=== PATIENT | female | born 1950 | race Caucasian/White ===

== ENCOUNTER → 2024-05-10 10:14 | Outpatient (REF) | payer MEDICARE, SELFPAY | LOC: WDC 10:14 | PROVIDERS: ATTENDING PHYSICIAN Family Medicine; REFERRING PHYSICIAN Surgery | DX: Z78.0 Asymptomatic menopausal state (principal); Z12.31 Encounter for screening mammogram for malignant neoplasm of breast | CPT/HCPCS: 77063; 77067; 77080 ==

== ENCOUNTER → 2024-06-06 13:04 | Outpatient (REF) | payer MEDICARE, SELFPAY | LOC: RAD 13:04 | PROVIDERS: ATTENDING PHYSICIAN Obstetrics & Gynecology Gynecologic Oncology; FAMILY PHYSICIAN Family Medicine | DX: N83.201 Unspecified ovarian cyst, right side (principal) | CPT/HCPCS: 76856 ==

== ENCOUNTER → 2024-11-05 09:38 | Outpatient (REF) | payer MEDICARE, SELFPAY ==
[2024-11-05 11:26] LABS: Blood Urea Nitrogen 21 mg/dl (7-17); Calcium 9.4 mg/dl (8.4-10.2); Carbon Dioxide 27 mmol/L (22-30); Chloride 102 mmol/L (98-107); Glucose 96 mg/dl (70-99); Potassium 4.8 mmol/L (3.5-5.1); Sodium 137 mmol/L (135-145); eGFR 46.91
== END ==
LOC: RAD 09:38
PROVIDERS: ATTENDING PHYSICIAN Surgery; FAMILY PHYSICIAN Family Medicine
DX: C75.1 Malignant neoplasm of pituitary gland (principal)
CPT/HCPCS: 36415; 71260; 74177; 80048; Q9967

== ENCOUNTER → 2025-04-29 06:55 | Outpatient (REF) | payer MEDICARE, SELFPAY | LOC: RAD 06:55 | PROVIDERS: ATTENDING PHYSICIAN Surgery; FAMILY PHYSICIAN Family Medicine | DX: C75.1 Malignant neoplasm of pituitary gland (principal) | CPT/HCPCS: 71260; 74177; Q9967 ==

== ENCOUNTER → 2025-05-21 13:02 | Outpatient (REF) | payer MEDICARE, SELFPAY | LOC: WDC 13:02 | PROVIDERS: ATTENDING PHYSICIAN Family Medicine | DX: Z12.31 Encounter for screening mammogram for malignant neoplasm of breast (principal) | CPT/HCPCS: 77063; 77067 ==

== ENCOUNTER → 2025-07-16 10:38 | Outpatient (REF) | payer MEDICARE, SELFPAY | LOC: RAD 10:38 | PROVIDERS: ATTENDING PHYSICIAN Family Medicine | DX: M72.2 Plantar fascial fibromatosis (principal) | CPT/HCPCS: 73630 ==

== ENCOUNTER 2025-08-13 08:21 | Outpatient (RCR) | payer MEDICARE, SELFPAY | END 2025-08-13 23:59 | disposition home or self-care (01) | LOC: RPT 08:21 | PROVIDERS: ATTENDING PHYSICIAN Family Medicine; FAMILY PHYSICIAN Internal Medicine | DX: N32.81 Overactive bladder (principal); N81.6 Rectocele; M62.89 Other specified disorders of muscle; N39.3 Stress incontinence (female) (male); N39.41 Urge incontinence; N39.46 Mixed incontinence; Z73.6 Limitation of activities due to disability; Z85.528 Personal history of other malignant neoplasm of kidney; Z90.5 Acquired absence of kidney | CPT/HCPCS: 97110; 97112; 97140; 97162; 97530 ==

== ENCOUNTER 2025-09-10 08:14 | Outpatient (RCR) | payer MEDICARE, SELFPAY | END 2025-09-10 23:59 | disposition home or self-care (01) | LOC: RPT 08:14 | PROVIDERS: ATTENDING PHYSICIAN Family Medicine; FAMILY PHYSICIAN Internal Medicine | DX: N32.81 Overactive bladder (principal); N81.6 Rectocele; M62.89 Other specified disorders of muscle; N39.3 Stress incontinence (female) (male); N39.41 Urge incontinence; N39.46 Mixed incontinence; Z73.6 Limitation of activities due to disability; Z85.528 Personal history of other malignant neoplasm of kidney; Z90.5 Acquired absence of kidney | CPT/HCPCS: 97110; 97112; 97140; 97530 ==

== ENCOUNTER 2025-10-15 07:30 | Outpatient (RCR) | payer MEDICARE, SELFPAY | END 2025-10-15 23:59 | disposition home or self-care (01) | LOC: RPT 07:30 | PROVIDERS: ATTENDING PHYSICIAN Family Medicine; FAMILY PHYSICIAN Internal Medicine | DX: N32.81 Overactive bladder (principal); N81.6 Rectocele; M62.89 Other specified disorders of muscle; N39.3 Stress incontinence (female) (male); N39.41 Urge incontinence; N39.46 Mixed incontinence; Z73.6 Limitation of activities due to disability; Z85.528 Personal history of other malignant neoplasm of kidney; Z90.5 Acquired absence of kidney | CPT/HCPCS: 97110; 97112; 97140; 97530 ==